=== PATIENT | male | born 1985 ===

== ENCOUNTER 2018-06-14 13:11 | Emergency (ER) | payer OTHER ==
[2018-06-14 13:18] VITALS: BP 130/82; PULSE 81; RESP 18; TEMP 98.3; O2SAT 97
[2018-06-14] MEDS ORDERED: Emtricitabine-Tenofovir 200 mg-300 mg Tab PO STA (13:31)
[2018-06-14] MEDS ORDERED: cefTRIAXone (Rocephin) 250 mg Inj IM STA (13:34)
[2018-06-14] MEDS ORDERED: Emtricitabine-Tenofovir 200 mg-300 mg Tab PO NR (13:45)
--- NOTE | 2018-06-14 13:59 | C.PDOC ---
History Of Present Illness 33-year-old male presents to the ED for evaluation of rhinorrhea, congestion and dry cough which have been intermittent for 2-3 months. Patient also reports subjective fever two days ago, which has since resolved. Patient has history of seasonal allergies and has experienced similar symptoms in the past. Patient is also requesting testing for possible STD exposure which occurred two days ago. Patient denies shortness of breath, chest pain, fever, chills, nausea, vomiting, and penile discharge. Time Seen by Provider: 06/14/18 13:19 Chief Complaint (Nursing): Cough, Cold, Congestion History Per: Patient History/Exam Limitations: no limitations Onset/Duration Of Symptoms: Days Current Symptoms Are (Timing): Still Present Additional History Per: Patient Past Medical History Reviewed: Historical Data, Nursing Documentation, Vital Signs Vital Signs: Last Vital Signs Temp 98.3 F 06/14/18 13:13 Pulse 81 06/14/18 13:13 Resp 18 06/14/18 13:13 BP 130/82 06/14/18 13:13 Pulse Ox 97 06/14/18 13:13 Primary Care Provider: FAMILY PROVIDER,NO - Medical History PMH: No Chronic Diseases Surgical History: No Surg Hx Family History: States: Unknown Family Hx - Social History Hx Alcohol Use: No Hx Substance Use: No - Immunization History Hx Tetanus Toxoid Vaccination: No Hx Influenza Vaccination: No Hx Pneumococcal Vaccination: No Review Of Systems Constitutional: Positive for: Fever ENT: Positive for: Nose Congestion Respiratory: Positive for: Cough. Negative for: Sputum Neurological: Negative for: Weakness, Numbness Physical Exam - Physical Exam Appears: Non-toxic, No Acute Distress Skin: Normal Color, Warm, Dry Head: Atraumatic, Normacephalic Eye(s): bilateral: Normal Inspection Ear(s): Bilateral: Normal Nose: Normal, No Discharge Oral Mucosa: Moist Throat: Normal, No Erythema, No Exudate Neck: Supple Chest: Symmetrical, No Deformity, No Tenderness Cardiovascular: Rhythm Regular, No Murmur Respiratory: Normal Breath Sounds, No Rales, No Rhonchi, No Wheezing Extremity: Normal ROM, Capillary Refill (less than 2 seconds ) Neurological/Psych: Oriented x3, Normal Speech, Normal Cognition ED Course And Treatment O2 Sat by Pulse Oximetry: 97 (on RA) Pulse Ox Interpretation: Normal Medical Decision Making Medical Decision Making: Progress: GC/Chlamydia, HIV 1&2, and Liver profile ordered. Rocephin IM, Tivicay PO, Truvada PO, and Zithromax PO given. On reassessment, patient is resting comfortably, showing no signs of distress and is stable for discharge. Patient is advised to follow up with PMD within 1-2 days for further evaluation. Disposition Counseled Patient/Family Regarding: Studies Performed, Diagnosis, Need For Followup, Rx Given - Disposition Referrals: [facility] [Outside] Disposition: HOME/ ROUTINE Disposition Time: 15:10 Condition: STABLE Additional Instructions: continue meds as prescribed follow up with PMD Return to ED if symptoms worsen please practice safe sex Prescriptions: Dolutegravir Sodium [Tivicay] 50 mg PO DAILY #2 tab Dolutegravir Sodium [Tivicay] 50 mg PO DAILY 27 Days #27 tab Emtricitabine/Tenofovir Diso [Truvada 200 MG-300 MG] 1 tab PO DAILY #2 tab Emtricitabine/Tenofovir Diso [Truvada 200 MG-300 MG] 1 tab PO DAILY 27 Days #27 tab Fluticasone Nasal [Flonase] 1 spr NS BID #1 bottle Instructions: Condom Options, Sexually-Transmitted Diseases (DC), STD Prevention, Allergic Rhinitis (ED) Forms: [employer] (Irish) - Clinical Impression Clinical Impression: Rhinorrhea, STI (sexually transmitted infection) - PA / TEAMCENTER CONSULTANT / Resident Statement MD/DO has reviewed & agrees with the documentation as recorded. - Scribe Statement The provider has reviewed the documentation as recorded by the Scribe (Nubia Cantu) All medical record entries made by the Scribe were at my direction and personally dictated by me. I have reviewed the chart and agree that the record accurately reflects my personal performance of the history, physical exam, medical decision making, and the department course for this patient. I have also personally directed, reviewed, and agree with the discharge instructions and disposition.
[2018-06-14 14:49] LABS: ALB/GLOB RATIO 1.5 (1.0-2.1); ALBUMIN 4.7 g/dL (3.5-5.0); BILIRUBIN,DIRECT 0.2 mg/dL (0.0-0.4)
[2018-06-15] MEDS ORDERED: Emtricitabine-Tenofovir 200 mg-300 mg Tab PO NR (14:00)
== END 2018-06-14 15:24 | disposition home or self-care (01) ==
LOC: C.ER 13:11
DX: J34.89 Other specified disorders of nose and nasal sinuses (principal); A64 Unspecified sexually transmitted disease
CPT/HCPCS: 80076; 86703; 87491; 87591; 96372; 99284; J0696